=== PATIENT | male | born 1995 | race African-American/Black ===

== ENCOUNTER 2018-10-29 20:48 | Emergency (ER) | payer OTHER ==
[~2018-10-29] VITALS: Ht 185.4 cm; Wt 74.1 kg
[2018-10-29 20:53] VITALS: TEMP 99.2
[2018-10-29 21:49] VITALS: BP 127/78; PULSE 70
== END 2018-10-29 21:52 | disposition home or self-care (01) ==
LOC: COL.ER 20:48
DX: N34.2 Other urethritis (principal); F17.210 Nicotine dependence, cigarettes, uncomplicated
CPT/HCPCS: J0696

== ENCOUNTER 2018-11-05 19:25 | Emergency (ER) | payer SELFPAY ==
[~2018-11-05] VITALS: Ht 185.4 cm; Wt 72.7 kg
[2018-11-05 19:31] VITALS: BP 134/74; PULSE 63; TEMP 98.1
[2018-11-05] MEDS ORDERED: DOXYCYCLINE 10100 MG PO (21:10)
[2018-11-05] MEDS ORDERED: VALTREX 50500 MG/TAB PO (21:13)
[2018-11-05 21:52] LABS: COLLECTION METHOD CLEAN CATCH
[2018-11-05 21:59] LABS: MUCOUS Present /lpf; PH 7 (5-8); SQUAMOUS EPITHELIAL None Seen /hpf; URINE APPEARANCE Clear; URINE BACTERIA None Seen /hpf; URINE BILIRUBIN Negative (NEGATIVE); URINE BLOOD Negative (NEGATIVE); URINE COLOR Straw; URINE GLUCOSE Negative (NEGATIVE); URINE KETONE Negative (NEGATIVE); URINE LEUKOCYTE ESTERASE Negative (NEGATIVE); URINE NITRATE Negative (NEGATIVE); URINE PROTEIN(semi-quant) Negative (NEGATIVE); URINE RBC 0-2 /hpf; URINE UROBILINOGEN Negative (NEGATIVE)
== END 2018-11-05 22:14 | disposition home or self-care (01) ==
LOC: COL.ER 19:25
PROVIDERS: Nurse Practitioner
DX: A56.01 Chlamydial cystitis and urethritis (principal)
CPT/HCPCS: J0696

== ENCOUNTER 2019-05-25 13:31 | Emergency (ER) | payer SELFPAY ==
[~2019-05-25] VITALS: Ht 185.4 cm; Wt 77.3 kg
[~2019-05-25 13:31] MED LIST: DOXYCYCLINE 10100 MG PO; VALTREX 50500 MG/TAB PO
[2019-05-25 15:44] VITALS: BP 130/62; PULSE 70; TEMP 98.1
== END 2019-05-25 15:38 | disposition home or self-care (01) ==
LOC: COL.ER 13:31
DX: S93.402A Sprain of unspecified ligament of left ankle, initial encounter (principal); X50.1XXA Overexertion from prolonged static or awkward postures, initial encounter; Y93.67 Activity, basketball

== ENCOUNTER 2021-07-03 19:45 | Emergency (ER) | payer SELFPAY ==
[~2021-07-03] VITALS: Ht 185.4 cm; Wt 79.5 kg
[2021-07-03 19:50] VITALS: TEMP 98.2
[2021-07-03 21:08] VITALS: BP 104/53; PULSE 79
== END 2021-07-03 21:10 | disposition home or self-care (01) ==
LOC: COL.ER 19:45
DX: S93.401A Sprain of unspecified ligament of right ankle, initial encounter (principal); X50.1XXA Overexertion from prolonged static or awkward postures, initial encounter; Y93.67 Activity, basketball